=== PATIENT | female | born 1965 | race Caucasian/White ===

== ENCOUNTER → 2019-07-22 09:03 | Outpatient (CLI) | payer BC, SELFPAY ==
--- NOTE | ~2019-07-22 | DEXA_ITS ---
Bone Density Report Name: Jenny Colmenares Age: 54 Sex: Female Ethnicity: White Date of : 1965 Indication: postmenopausal; screening for osteoporosis; height loss; Referring Provider: Viktor Higuera Study: Bone densitometry was performed. Exam Date: July 22, 2019 Accession number: [id number] Bone Density: Region BMD T-score Z-score Classification AP Spine (L1-L4) 0.934 -1.0 0.1 Normal Femoral Neck (Left) 0.619 -2.1 -1.0 Osteopenia Total Hip (Left) 0.747 -1.6 -0.9 Osteopenia Femoral Neck (Right) 0.596 -2.3 -1.2 Osteopenia Total Hip (Right) 0.756 -1.5 -0.8 Osteopenia Total Hip Mean 0.752 -1.6 -0.9 Osteopenia World Health Organization criteria for BMD impression classify patients as: Normal (T-score at or above -1.0), Osteopenia (T-score between -1.0 and -2.5), or Osteoporosis (T-score at or below -2.5). 10-year Fracture Risk(1): Major Osteoporotic Fracture 7.8% Hip Fracture 1.2% Reported Risk Factors: [place] (), Neck BMD=0.596, BMI=20.0 (1) FRAX(R) Version 3.08. Fracture probability calculated for an untreated patient. Fracture probability may be lower if the patient has received treatment. Clinical Information Provided by Patient: Patient maximum height was 66 No regular weight bearing exercise Does not regularly consume dairy products Drinks caffeinated beverages Onset of menses at age 11 Number of children 2 Impression: The patient has low bone mass, based on the Right Femoral Neck T-score. The patient has an estimated ten-year risk of hip fracture of 1.2% and an estimated ten-year risk of major fracture of 7.8%, based on the WHO FRAX algorithm. Discussion: BONE DENSITY IS LOW AT ONE OR MORE SKELETAL SITES. This patient's lowest T-score is low at one or more skeletal sites. It meets the World Health Organization's (WHO) criteria for ?low bone mass? (T-score between -1.0 and -2.5). The patient's 10-year risk of fracture as calculated by FRAX is less than the threshold where pharmacological therapy is recommended by the National Osteoporosis Foundation (NOF). However, all treatment decisions require clinical judgment and consideration of individual patient factors, including patient preferences, comorbidities, previous drug use, risk factors not captured in the FRAX model (e.g., frailty, falls, vitamin D deficiency, increased bone turnover, interval significant decline in bone density) and possible under or overestimation of fracture risk by FRAX. The patient should follow a healthful lifestyle (good nutrition with adequate calcium and vitamin D, and appropriate weight-bearing exercise). Follow-Up: Consider repeating this study in 2 to 3 years to reassess this patient's status, or sooner if there is some new clinical indication. Reported by: REANNA on 07/22/2019 9:21:00 AM
== END ==
PROVIDERS: PCP Registered Nurse; Visit Provider Obstetrics & Gynecology
DX: Z13.820 Encounter for screening for osteoporosis (principal); M85.89 Other specified disorders of bone density and structure, multiple sites
CPT/HCPCS: 77080

== ENCOUNTER → 2022-10-28 11:00 | Outpatient (CLI) | payer BC, SELFPAY ==
--- NOTE | ~2022-10-28 | DEXA_ITS ---
Bone Density Report Name: ISIS MALDONADO Age: 57 Sex: Female Ethnicity: White Date of : 1965 Indication: osteopenia; height loss; postmenopausal Referring Provider: NIKITA VELEZ Study: Bone densitometry was performed. Exam Date: October 28, 2022 Accession number: [id number] Bone Density: Region BMD T-score Z-score Classification AP Spine (L1-L4) 0.909 -1.3 0.1 Osteopenia Femoral Neck (Left) 0.586 -2.4 -1.1 Osteopenia Total Hip (Left) 0.716 -1.9 -0.9 Osteopenia Femoral Neck (Right) 0.579 -2.4 -1.2 Osteopenia Total Hip (Right) 0.739 -1.7 -0.8 Osteopenia Total Hip Mean 0.728 -1.8 -0.9 Osteopenia World Health Organization criteria for BMD impression classify patients as: Normal (T-score at or above -1.0), Osteopenia (T-score between -1.0 and -2.5), or Osteoporosis (T-score at or below -2.5). 10-year Fracture Risk(1): Major Osteoporotic Fracture 9.3% Hip Fracture 1.6% Reported Risk Factors: [place] (), Neck BMD=0.579, BMI=19.9 (1) FRAX(R) Version 3.08. Fracture probability calculated for an untreated patient. Fracture probability may be lower if the patient has received treatment. Previous Exams: Region Exam Age BMD T-score BMD Change BMD Change Date g/cm2 vs Baseline vs Previous AP Spine(L1-L4) 10/28/2022 57 0.909 -1.3 -0.025* -0.025* 07/22/2019 54 0.934 -1.0 Total Hip(Left) 10/28/2022 57 0.716 -1.9 -0.031* -0.031* 07/22/2019 54 0.747 -1.6 Total Hip(Right) 10/28/2022 57 0.739 -1.7 -0.017 -0.017 07/22/2019 54 0.756 -1.5 *Denotes significance at 95% confidence level, LSC for AP Spine = 0.022 g/cm2, LSC for Total Hip = 0.027 g/cm2 Clinical Information Provided by Patient: Has used the following medications: Vitamin D, Calcium Patient maximum height was 65.5 Menopause Age: 46 No regular weight bearing exercise Does not regularly consume dairy products Drinks caffeinated beverages Onset of menses at age 11 Number of children 2 Impression: The patient has low bone mass, based on the Left Femoral Neck T-score. The patient has an estimated ten-year risk of hip fracture of 1.6% and an estimated ten-year risk of major fracture of 9.3%, based on the WHO FRAX algorithm. The BMD for the AP Spine(L1-L4) decreased, changing by -0.025 since the last DXA exam. The BMD for the Total Hip(Left) decreased, changing by -0.031 since the last DXA exam. Discussion: B
== END ==
PROVIDERS: PCP Obstetrics & Gynecology Gynecology; Visit Provider Obstetrics & Gynecology Gynecology
DX: M85.89 Other specified disorders of bone density and structure, multiple sites (principal); Z78.0 Asymptomatic menopausal state
CPT/HCPCS: 77080

== ENCOUNTER 2023-11-21 14:22 | Outpatient (CLI) | payer BC, SELFPAY ==
--- NOTE | ~2023-11-21 | CT_ITS ---
EXAMINATION: CT abdomen pelvis wo con DATE: 11/21/2023 14:42 INDICATION: Gross hematuria. TECHNIQUE: Computed tomography (CT) of the abdomen and pelvis was performed without intravenous contr ast. Automated exposure control and iterative reconstruction technique were employed. The dose-length product was 261.13 mGy-cm. COMPARISON: CT abdomen and pelvis dated 02/19/2019, 01/27/[address] dated 09/25/2015 FINDINGS: Small pneumatocele in the right lower lobe. Mild likely radiation fibrosis along the anterior right m iddle lobe. Heart size is normal. No pericardial or pleural effusion. 3.5 cm and 3.2 cm hypodense hem angiomas in the liver the latter unchanged and the former decreased from 5.8 cm on the prior study. T hese demonstrated characteristic peripheral discontiguous puddling of contrast on a prior contrast-en hanced chest CT dated 09/25/2015. Additional approximately 1 cm ill-defined hypodense lesion in the po sterior right hepatic lobe, likely benign given the lack of interval change since the prior abdomen C T studies but not imaged on the prior chest CT most likely an additional hemangioma. Cholecystectomy clips the gallbladder fossa. Spleen, pancreas, bilateral adrenal glands are normal. Bilateral nephrol ithiasis with 4 mm stone in a few on tape 1 mm stones at the lower pole of the right kidney and a few small stones at the lower pole of the left kidney measuring up to 3 mm. No hydronephrosis. 1.3 cm le ft renal cyst. Several phleboliths in the pelvis predominantly on the left. No evident ureteral stone s. Chronic calcified uterine fibroid. Bladder is normal. No bowel obstruction. No free intraperitonea l gas or fluid. No pathologically enlarged abdominal or pelvic lymphadenopathy. Bones are unremarkabl e. IMPRESSION: 1. Nonobstructing bilateral nephrolithiasis. 2. Calcified uterine fibroids. Reviewed, dictated and finalized at location A.
== END 2023-11-21 14:23 ==
LOC: MICIMG 14:24
PROVIDERS: PCP Registered Nurse; Visit Provider Nurse Practitioner Family
DX: N20.0 Calculus of kidney (principal); D25.9 Leiomyoma of uterus, unspecified; Z87.442 Personal history of urinary calculi; Z85.3 Personal history of malignant neoplasm of breast
CPT/HCPCS: 74176

== ENCOUNTER 2023-12-15 09:24 | Outpatient (CLI) | payer BC, SELFPAY ==
--- NOTE | ~2023-12-15 | XR_ITS ---
XR abdomen/kub 1V Ordering provider: Silvana Rodriguez, SPORTS MEDICINE PHYSICIAN History: . Bilat kidney stones . Comparison: None. FINDINGS: BOWEL: Nonobstructive bowel gas pattern. ORGANOMEGALY: None. SIGNIFICANT PATHOLOGIC CALCIFICATIONS: Bilateral kidney stones. Calcifications in the area of the jonny dder unchanged. OTHER: No free air is seen under the diaphragm. IMPRESSION: NO ACUTE ABDOMINAL FINDINGS. Bilateral kidney stones. Reviewed, dictated and finalized at location A.
== END 2023-12-15 09:25 ==
PROVIDERS: PCP Registered Nurse; Visit Provider Nurse Practitioner Family
DX: N20.0 Calculus of kidney (principal)
CPT/HCPCS: 74018

== ENCOUNTER 2024-09-19 15:37 | Outpatient (CLI) | payer BC, SELFPAY ==
--- NOTE | ~2024-09-19 | US_ITS ---
Pelvic ultrasound. Clinical History: Postmenopausal bleeding Technique: Realtime transvaginal scanning of the pelvis was performed. Color flow Doppler and Doppler spectral analysis were performed. Findings: The uterus is anteverted. The endometrial stripe has a thickness of 4 mm. Possible small f ibroid measuring 7 mm. Additional densely calcified fibroid probably present, measuring 2.5 cm in adeola meter. The right ovary measures 2.6 x 1.5 x 1.8 cm. No significant right ovarian or adnexal mass is seen. The left ovary measures 2.1 x 1.2 x 1.6 cm. No significant left ovarian or adnexal mass is seen. There is no evidence of free fluid in the cul de sac. Impression: Uterine fibroids, as above. No abnormal endometrial thickening. Reviewed, dictated and finalized at [facility]. Impression: Uterine fibroids, as above. No abnormal endometrial thickening.
== END 2024-09-19 15:38 | disposition home or self-care (01) ==
LOC: MICIMG 15:39
PROVIDERS: PCP Registered Nurse; Visit Provider Nurse Practitioner
DX: D25.9 Leiomyoma of uterus, unspecified (principal)
CPT/HCPCS: 76830

== ENCOUNTER 2024-11-18 01:02 | Day surgery (SDC) | payer BC, SELFPAY ==
[2024-10-29 08:32] VITALS: BMI 19.6
--- NOTE | 2024-10-29 08:33 | PC.NURSE ---
Addendum entered by Edmar Garza RN 11/13/24 16:16: Except for surgery cancelled due to covid, no other changes to health history. Informed patient to be here at 0830 on 11-18-2024 for surgery at 1030. Reviewed rest of instructions with patient. Original Note: Report to the Outpatient Waiting Room, entrance under the green pavilion located off [facility], at time _0615_ on date _[id number]_. Planned Procedure Time: _08_.? Time changes happen often and if your time is changed the preop area will call you the afternoon before. - You and your visitor will be asked to self-screen and do not enter if you have any COVID symptoms. Please call surgeon if you need to reschedule. - A mask is optional within the hospital at this time. Patients may have clear liquids (water, carbonated beverages, clear teas, apple juice) until 3 hours prior to surgery with a maximum of 20 ounces. - No food from midnight until time of surgery and no smoking, or chewing tobacco (or any form of nicotine). No chewing gum, candy or mints. Take only the following medications with a SIP of water on the morning of surgery: ___None____ DO NOT STOP ANY OF YOUR OTHER PRESCRIPTION MEDICATIONS PRIOR TO SURGERY EXCEPT THE FOLLOWING Hold all vitamins and supplements for 3 days per anesthesiologist. Medications to discontinue per physician Date to take last dose Please no make-up, nail icelandic, hairspray, perfume, deodorant, or body powder the day of surgery.? No jewelry (including any body piercings) or valuables the day of surgery, leave them at home.? Please take a shower or bath the night before, or the morning of, surgery with an antibacterial soap.? Wear comfortable, loose fitting clothing.? - Jewelry must be removed prior to entering the operating room.? Rings and piercings that are not removed may be cut off. - The hospital will not accept responsibility for valuables.? - Please leave all valuables, including medications, at home the day of surgery. If you are going home after surgery, a licensed crew truck driver must drive you home.? - NO public transportation without another adult if you receive anesthesia. - We recommend that an adult stay with you for 24 hours following discharge. - We also recommend that you do not drive, make important decision, drink alcoholic beverages, or take any drugs that were not prescribed by your health care provider for at least 24 hours after your discharge time. Follow any additional instructions given to you from your surgeon. Telephone instructions given to __Jenny___and asked if any additional questions and then verbalized understanding. Patient advised to call surgeon office or pre surgery nurse liaison [phone] if any additional questions.
--- OUTSIDE RECORDS SUMMARY | 2024-11-18 01:05 | XMS_ITS ---
Author Organization [facility] Address [address] [place] [address] Care Team Providers Care Unit Trust Manager Name Role Phone Cara Suarez Primary Care Provider + Angelo Mulligan MD Unavailable [phone] Active Problems Problem Noted Date Diagnosed Date Carpal tunnel syndrome of left wrist 11/22/2019 Overview (11/22/2019): Added automatically from request for surgery [id number] Median neuropathy, left 11/22/2019 Overview (11/22/2019): Added automatically from request for surgery [id number] Intractable migraine without aura and without status migrainosus 04/30/2019 Vaginal atrophy 05/24/2018 Malignant neoplasm of upper- outer quadrant of right breast in female, estrogen receptor negative 05/23/2018 Cervical disc disorder with radiculopathy of mid-cervical region 10/09/2017 Overview (10/09/2017): Added automatically from request for surgery [id number] Failed cervical fusion 10/09/2017 Overview (10/09/2017): Added automatically from request for surgery [id number] Spondylolysis of cervical region 08/24/2017 Postlaminectomy syndrome of cervical region 03/31 Cervicalgia 04/15/2013 Osteoarthritis of cervical spine without myelopa thy 04/15/2013 Acute postoperative pain Current Treatment and Therapy Plans No current plan information found. Past Treatment and Therapy Plans No past plan information found. Lifetime Dose Tracking * Chemical Lifetime Dose Automatic Entry Manual Entr y Fluoro Time 0.2 minutes 0.2 minutes 0 minutes
--- OUTSIDE RECORDS SUMMARY | 2024-11-18 01:05 | XMS_ITS | Clinical Summary ---
Author Organization [facility] Address [address] [place] [id number] Care Team Providers Care Muffler Hand Name Role Phone Cara Suarez Primary Care Provider + Angelo Mulligan MD Unavailable Allergies Active Allergy Reactions Criticality Noted Date Comments Codeine Nausea only Low 02/19/2013 Erythromycin Nausea & Vomiting Low 03/14/2018 Levofloxacin Other (See comments) Low 02/19/2013 Turns toes black Medications bret/D3/mag11/zi nc/copier technician/chace/bor (CALTRATE 600-D PLUS MINERALS ORAL) Take 1 tablet by mouth every morning Active [id number] -Lmfolate-algal 27 mg iron-1.13 mg-581.92 mg capsule Take by mouth daily Active acetaminophen-a spirin-caffeine (EXCEDRIN MIGRAINE) 250-250-65 mg per tablet Take 1 tablet by mouth every 6 (six) hours as needed for headaches Active biotin 1 mg capsule Take by mouth Active Active Problems Problem Noted Date Diagnosed Date Carpal tunnel syndrome of left wrist 11/22/2019 Overview (11/22/2019): Added automatically from request for surgery [id number] Median neuropathy, left 11/22/2019 Overview (11/22/2019): Added automatically from request for surgery [id number] Intractable migraine without aura and without status migrainosus 04/30/2019 Vaginal atrophy 05/24/2018 Malignant neoplasm of upper- outer quadrant of right breast in female, estrogen receptor negative 05/23/2018 Cervical disc disorder with radiculopathy of mid-cervical region 10/09/2017 Overview (10/09/2017): Added automatically from request for surgery [id number] Failed cervical fusion 10/09/2017 Overview (10/09/2017): Added automatically from request for surgery [id number] Spondylolysis of cervical region 08/24/2017 Postlaminectomy syndrome of cervical region 03/31 Cervicalgia 04/15/2013 Osteoarthritis of cervical spine without myelopa thy 04/15/2013 Acute postoperative pain Immunizations Immunization Administration Dates Next Due Influenza, Quadrivalent, Spl it, Preservative Free, Intramuscular 02/09/2020 Influenza, Unspecified 01/29/2019 Pandoodle SARS-CoV-2 Monovalent Vaccination (12+ Yrs) PURPLE 04/27/2021,08/20/2020,07/27/2020 ZOSTER Recombinant 06/24/2019 Surgical History Surgery Date Site/Laterality Comments MASTECTOMY Breast Surgery Mastectomy - (Added by TW Conv) NE CHOLECYSTECTOMY Cholecystectomy - (Added by TW Conv) SIMPLE MASTECTOMY Simple Mastectomy Bilateral - (Added by TW Conv) NECK SURGERY Neck Surgery - (Added by TW Conv) NE INJ CERV/THORAC,W/WO CNTRST Corticosteroid Injection Interlaminar Approach Cervical - (Added by TW Conv) FOOT SURGERY Foot Surgery - toe surgery (Added by TW Conv) RECONSTRUCTION BREAST IMMEDIATE / DELAYED W/ TISSUE TRANSPORT CONDUCTOR 05/01/2013 - 04/30/2014 NECK SURGERY KIDNEY STONE EVALUATION BREAST IMPLANT REMOVAL BREAST BIOPSY BREAST BIOPSY 05/11/2012 Left CARPAL TUNNEL RELEASE MASS EXCISION left back Medical History Medical History Date Comments Effects of radiation Radiation S ickness - (Added by TW Conv) Encounter for antineoplastic chemotherapy Encounter for antineoplastic chemotherapy - (Added by TW Conv) Calculus of kidney Kidney stones , calcium oxalate - (Added by TW Conv) History of radiation therapy 201 3 History of chemotherapy 2012 ARDS (adult respiratory dist ress syndrome) (HCC) 1994 ARDS (adult respiratory dist ress syndrome) (HCC) Irritable bowel syndrome Cancer (HCC) breast; last joey mo 2012, XRT 2013 Cataract Migraines Delayed emergence from gener al anesthesia has not had to go to the ICU unexpected or reintubation PONV (postoperative nausea and vomiting) SEVERE; ZOFRAN IV Breast cancer (HCC) Motion sickness Family History Medical History Relation Name Comments No Known Problems Father No Known Problems Mother Anesthesia problems Neg Hx Relation Name Status Comments Father Mother Social History Tobacco Use Types Packs/Day Years Used Date Smoking Tobacco: Former Cigarettes 1 11 1 979 - 1989 Smokeless Tobacco: Never Alcohol Use Standard Drinks/Week Comments Yes 0 (1 standard drink = 0.6 oz pur e alcohol) rare AUDIT-C Answer Date Recorded Q1: How often do you have a drink containing alc ohol? Monthly or less 03/31/2023 Q2: How many drinks containi ng alcohol do you have on a typical day when you are drinking? 1 or 2 03/31/2023 Q3: How often do you have si x or more drinks on one occasion? Never 03/31/2023 Personal Safety Answer Date Recorded Have you ever been in or are you currently in a harmful physical or emotional relationship or is someone making you feel afraid or unsafe? Denies 03/31/2023 Comments No Sex and Gender Information Value Date Recorded Sex Assigned at Not on file Legal Sex Female 4:36 AM FLOW MATCH SOFA CUTTER Gender Identity Not on file Sexual Orientation Not on file Obstetrics History Last Filed Vital Signs Vital Sign Reading Time Taken Comments Blood Pressure 130/57 03/31/2023 3:00 PM FLOW MATCH SOFA CUTTER Pulse 75 03/31/2023 3:00 PM FLOW MATCH SOFA CUTTER Temperature 36.8 C (98.2 F) 03/31/2023 12:15 PM FLOW MATCH SOFA CUTTER Respiratory Rate 16 03/31/2023 3:00 PM FLOW MATCH SOFA CUTTER Oxygen Saturation 100% 03/31/2023 3:00 PM FLOW MATCH SOFA CUTTER Inhaled Oxygen Concentration - - Weight 54 kg (119 lb 1.6 oz) 03/31/2023 10:00 AM FLOW MATCH SOFA CUTTER Height 165.1 cm (5' 5) 03/31/2023 10:00 AM FLOW MATCH SOFA CUTTER Body Mass Index 19.82 03/31/2023 10:00 AM FLOW MATCH SOFA CUTTER Plan of Treatment Health Maintenance Due Date Last Done Comments Breast Cancer Screening-Mammogram 1965 Cervical Cancer Screening 1965 Colon Cancer Screening-Colonoscopy 1965 Depression Screening 1965 Hepatitis C Screening 1965 DTaP/Tdap/Td Vaccine (1 - Tdap) 1974 Hepatitis B Screening 1981 Regular Well Visit/Exam 18-64 1981 Zoster Vaccine (2 of 2) 08/19/2019 06/24/2019 Covid-19 Vaccine (4 - 2023-2 5 season) 2023 04/27/2021, 08/20/2020, 07/27/2020 Influenza Vaccine (Season Ended) 2024 02/08/2021, 02/09/2020, 01/29/2019 Pneumococcal vaccine <65 Aged Out No longer eligible based on patient's age to complete this topic Medical Devices Implanted Type Area Water Pipe Installer Device Identifier Shelf Expiration Date Model / Serial / Lot [employer] [id number] Acupac Allograft Frozen Graft 25cc Bone Cancellous - [id number] - [id number] Implanted:Qty: 1 on 11/14/2017 by Hemanth Amezquita MD at [facility] Graft N/A: Spine Cervical [employer] 07/26/2019 [id number] / [id number] / [id number] Depuy Spine [id number] Mountaineer 3.5mm Inner Spine Occipital Screw Bone Nonsterile - S0 - [id number] Implanted:Qty: 4 on 11/14/2017 by Hemanth Amezquita MD at [facility] Other - see comments N/A: Spine Cervical Depuy Spine [id number] / 0 / Description:Set cap Depuy Spine 4.730 Synapse 3.5mm 30mm Occipitocervical Curve Prebent David Spinal - S0 - [id number] Implanted:Qty: 1 on 11/14/2017 by Hemanth Amezquita MD at [facility] Other - see comments N/A: Spine Cervical Depuy Spine 614.730 / 0 / Description:Synapse david Synthes 73 3.5mm 35mm Occipitocervical Curve Prebent David Spinal Titanium - S0 - [id number] Implanted:Qty: 1 on 11/14/2017 by Hemanth Amezquita MD at [facility] Other - see comments N/A: Spine Cervical Synthes I 4.735 / 0 / Description:Synapse david Depuy Spine [id number] Mountaineer 3.5mm 14mm Polyaxial Fix Angle Spine - S0 - [id number] Implanted:Qty: 2 on 11/14/2017 by Hemanth Amezquita MD at [facility] Screw Depuy Spine [id number] / 0 / Depuy Spine [id number] Mountaineer 3.5mm 16mm Polyaxial Fix Angle Spine - S0 - [id number] Implanted:Qty: 2 on 11/14/2017 by Hemanth Amezquita MD at [facility] Screw N/A: Spine Cervical Depuy Spine [id number] / 0 / Disc N/A: Neck [facility] CHOICE PLUS BLUE ACCESS [place] ANTHEM ACCESS BLUE ACCESS [place] ANTHEM ACCESS Advance Directives For more information, please contact: [phone] Documents on File Type Date Recorded Patient Flat Optical Element Maker Expl anation ADVANCE DIRECTIVE 05/28/2013 12:00 AM JOSE R OF [employer] SYSTEM ADMIN FINANCIAL/MEDICAL * Full Code (Latest Code Status on File) Date Activated Date Inactivated Comments 11/14/2017 7:16 PM 11/21/2017 4:59 PM Care Teams Muffler Hand Relationship Specialty Start Date End Date Cara Suarez PA PCP - General Nurse Practitioner 05/24/18 Angelo Mulligan MD Medical Oncologist/Computer Security Coordinator Hematology and Oncology 05/25/18
--- OUTSIDE RECORDS SUMMARY | 2024-11-18 01:05 | XMS_ITS | Encounter Summary ---
Author Organization [facility] Health Address [address] [facility] [address] Care Team Providers Care Reel Operator Name Role Phone Pravin Barney MD Primary Care Provider Encounter Details Date Type Department Care Team (Late st Contact Info) Description 09/11/2024 Lab Requisition [facility] - DermPath Lab [address] [facility] [place] [address] Noreen Alvarez MD [address] [place] [address] Social History Tobacco Use Types Packs/Day Years Used Date Smoking Tobacco: Former Smokeless Tobacco: Never Comments No Sex and Gender Information Value Date Recorded Sex Assigned at Not on file Legal Sex Female 9:03 AM MEDICAL SERVICES MANAGER Gender Identity Not on file Sexual Orientation Not on file documented as of this encounter Plan of Treatment Not on file documented as of this encounter Procedures Procedure Name Priority Date/Time Associated Diagnosis Comments DERMATOPATHOLOGY Routine 09/11/2024 11:3 1 AM CDT documented in this encounter Results * DERMATOPATHOLOGY (09/11/2024 11:31 AM CDT) Case Report Dermatopathology Report Case: [id number] Authorizing Provider: Noreen Alvarez MD Collected: 09/11/2024 11:31 AM Ordering Location: [facility] - Received: 09/12/2024 09:17 AM DermPath Lab Pathologist: Genie Duong MD Specimen: Skin, right cheek 12:49 PM CDT DERMATOPATHOLOGY LABORATORY Final Diagnosis Specimen A. SKIN, right cheek: HEALING SKIN CHANGES (L90.5) SUPPURATIVE AND GRANULOMATOUS DERMATITIS CONSISTENT WITH A RUPTURED CYST OR HAIR FOLLICLE (L72.0) (see microscopic description) 12:49 PM CDT DERMATOPATHOLOGY LABORATORY at 1249 CDT Clinical History Non-healing [place] Papule R/O BCC 12:49 PM CDT DERMATOPATHOLOGY LABORATORY Gross Description Specimen A: Received is one formalin filled container labeled with the patient's name and designated right cheek. The specimen consists of a shave biopsy measuring 6x2x1 mm. Jar 0. 12:49 PM CDT DERMATOPATHOLOGY LABORATORY Microscopic Description Specimen A. SKIN, right cheek: There is epidermal hyperplasia and focal erosion beneath which there are vascular proliferation, fibroblasts, and an edematous stroma. Neutrophils, histiocytes, and multinucleated giant cells are present within the superficially sampled dermis. Additional deeper sections were obtained and reviewed. 12:49 PM CDT DERMATOPATHOLOGY LABORATORY Disclaimer An external and internal positive and negative controls are appropriate for the histochemical, immunohistochemical and immunofluorescence stain(s) in this case (if any), except where stated explicitly. The performance characteristics of the stain(s) cited in this report were developed and its performance characteristic determined by the Dermatopathology Laboratory at [facility], directed by Dr. Jeanne Nagy. These tests need not be, and therefore are not, approved by the [place] Food and Drug Administration. The tests are used for clinical purposes. Billing Codes Specimen Charges Stain Charges 30422 1 12:49 PM CDT DERMATOPATHOLOGY LABORATORY Embedded Images 12:49 PM CDT DERMATOPATHOLOGY LABORATORY Pathology/Cytolo gy TISSUE SPECIMEN FROM SKIN / Unknown 09/11/2024 11:31 AM CDT 09/12/2024 9:17 AM CDT Noreen Alvarez MD LAB - PATHOLOGY/CYTOLOGY OR DERABLES Final Result DERMATOPATHOLOGY LABORATORY [facility] - Department of Dermatology [facility] [address] [place] [address], [address] [phone] documented in this encounter Visit Diagnoses Not on filedocumented in this encounter Care Teams Reel Operator Relationship Specialty Start Date End Date Pravin Barney MD [address] [place] [address] PCP - General Family Medicine 06/20/16 documented as of this encounter
--- OUTSIDE RECORDS SUMMARY | 2024-11-18 01:05 | XMS_ITS | Referral Summary ---
Author Organization [facility] Address [address] [place] [address] Care Team Providers Care Deputy Clerk Of Court Name Role Phone Cara Suarez Primary Care Provider + Angelo Mulligan MD Unavailable [phone] Allergies Active Allergy Reactions Criticality Noted Date Comments Codeine Nausea only Low 02/19/2013 Erythromycin Nausea & Vomiting Low 03/14/2018 Levofloxacin Other (See comments) Low 02/19/2013 Turns toes black Medications bret/D3/mag11/zi nc/coping machine assembler/chace/bor (CALTRATE 600-D PLUS MINERALS ORAL) Take 1 tablet by mouth every morning Active [id number] -Lmfolate-algal 27 mg iron-1.13 mg-581.92 mg capsule [...] (11/22/2019): Added automatically from request for surgery [id number] Median neuropathy, left 11/22/2019 Overview (11/22/2019): Added automatically from request for surgery [id number] Intractable migraine without aura and without status migrainosus 04/30/2019 Vaginal atrophy 05/24/2018 Malignant neoplasm of upper- outer quadrant of right breast in female, estrogen receptor negative 05/23/2018 Cervical disc disorder with radiculopathy of mid-cervical region 10/09/2017 Overview (10/09/2017): Added automatically from request for surgery [id number] Failed cervical fusion 10/09/2017 Overview (10/09/2017): Added automatically from request for surgery [id number] Spondylolysis of cervical region 08/24/2017 Postlaminectomy syndrome of cervical region 03/31 Cervicalgia 04/15/2013 Osteoarthritis of cervical spine without myelopa thy 04/15/2013 Acute postoperative pain Immunizations Immunization Administration Dates Next Due Influenza, Quadrivalent, Spl it, Preservative Free, Intramuscular 02/09/2020 Influenza, Unspecified 01/29/2019 Pfizer SARS-CoV-2 Monovalent Vaccination (12+ Yrs) PURPLE 04/27/2021,08/20/2020,07/27/2020 ZOSTER Recombinant 06/24/2019 Social History Tobacco Use Types Packs/Day Years Used Date Smoking Tobacco: Former Cigarettes 1 11 1989 Smokeless Tobacco: Never Alcohol Use Standard [...] on file Legal Sex Female 4:36 AM HUMAN INTELLIGENCE Gender Identity Not on file Sexual Orientation Not on file Last Filed Vital Signs Vital Sign Reading Time Taken Comments Blood Pressure 130/57 03/31/2023 3:00 PM HUMAN INTELLIGENCE Pulse 75 03/31/2023 3:00 PM HUMAN INTELLIGENCE Temperature 36.8 C (98.2 F) 03/31/2023 12:15 PM HUMAN INTELLIGENCE Respiratory Rate 16 03/31/2023 3:00 PM HUMAN INTELLIGENCE Oxygen Saturation 100% 03/31/2023 3:00 PM HUMAN INTELLIGENCE Inhaled Oxygen Concentration - - Weight 54 kg (119 lb 1.6 oz) 03/31/2023 10:00 AM HUMAN INTELLIGENCE Height 165.1 cm (5' 5) 03/31/2023 10:00 AM HUMAN INTELLIGENCE Body Mass Index 19.82 03/31/2023 10:00 AM HUMAN INTELLIGENCE Plan of Treatment Not on file Medical Devices Implanted Type Area Extension Service Supervisor Device Identifier Shelf Expiration Date Model / Serial / Lot [employer] [id number] Acupac Allograft Frozen Graft 25cc Bone Cancellous - [id number] - [id number] Implanted:Qty: 1 on 11/14/2017 by Hemanth Amezquita MD at [facility] Graft N/A: Spine Cervical [employer] 07/26/2019 [id number] / [id number] / [id number] Depuy Spine [id number] Mountaineer 3.5mm Inner Spine Occipital Screw Bone Nonsterile - S0 - [id number] Implanted:Qty: 4 on 11/14/2017 by Hemanth Amezquita MD at [facility] Other - see comments N/A: Spine Cervical Depuy Spine [id number] / 0 / Description:Set cap Depuy Spine 73 Synapse 3.5mm 30mm Occipitocervical Curve Prebent David Spinal - S0 - [id number] Implanted:Qty: 1 on 11/14/2017 by Hemanth Amezquita MD at [facility] Other - see comments N/A: Spine Cervical Depuy Spine 4.730 / 0 / Description:Synapse david Synthes 3.5mm 35mm Occipitocervical Curve Prebent David Spinal Titanium - S0 - [id number] Implanted:Qty: 1 on 11/14/2017 by Hemanth Amezquita MD at [facility] Other - see comments N/A: Spine Cervical Synthes I 4.735 / 0 / Description:Synapse david Depuy Spine [id number] Mountaineer 3.5mm 14mm Polyaxial Fix Angle Spine - S0 - [id number] Implanted:Qty: 2 on 11/14/2017 by Hemanth Amezquita MD at [facility] Screw Depuy Spine [id number] / 0 / Depuy Spine [id number] Mountaineer 3.5mm 16mm Polyaxial Fix Angle Spine - S0 - [id number] Implanted:Qty: 2 on 11/14/2017 by Hemanth Amezquita MD at [facility] Screw N/A: Spine Cervical Depuy Spine [id number] / 0 / Disc N/A: Neck Insurance [facility] Address: [facility] [id number] [place] [address] [facility] CHOICE PLUS BLUE ACCESS CO ANTHEM ACCESS BLUE ACCESS OOS ANTHEM ACCESS Advance Directives For more information, please contact: [phone] Documents on File Type Date Recorded Patient Service Writer Expl anation ADVANCE DIRECTIVE 05/28/2013 12:00 AM JOSE R OF DATA MANAGEMENT SPECIALIST FINANCIAL/MEDICAL * Full Code (Latest Code Status on File) Date Activated Date Inactivated Comments 11/14/2017 7:16 PM 11/21/2017 4:59 PM Care Teams Deputy Clerk Of Court Relationship Specialty Start Date End Date Cara Suarez PA PCP - General Nurse Practitioner 05/24/18 Angelo Mulligan MD Medical Oncologist/Quality Control Head Hematology and Oncology 05/25/18
--- OUTSIDE RECORDS SUMMARY | 2024-11-18 01:05 | XMS_ITS | Encounter Summary ---
Author Organization [facility] Address [address] [place] [address] Phone Care Team Providers Care Director Of Institutional Giving Name Role Phone Cara Suarez Primary Care Provider + Angelo Mulligan MD Unavailable [phone] Encounter Details Date Type Department Care Team (Late st Contact Info) Description 12/16/2019 Orders Only [facility] Orthopaedic Surgery [address] [place] [address] Jamir Abbasi MD [address] [address] [place] [address] Social History Tobacco Use Types Packs/Day Years Used Date Smoking Tobacco: Former Cigarettes 1 11 1 979 - 1989 Smokeless Tobacco: Never Alcohol Use Standard Drinks/Week Comments Yes 0 (1 standard drink = 0.6 oz pur e alcohol) rare Comments No Sex and Gender Information Value Date Recorded Sex Assigned at Not on file Legal Sex Female 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 Gender Identity Not on file Sexual Orientation Not on file documented as of this encounter Ordered Prescriptions Prescription Sig Dispense Quantity Refills Last Filled Start Date End Date meloxicam (MOBIC) 7.5 mg tablet Take 1 tablet (7.5 mg total) by mouth 2 (two) times a day 60 tablet 2 12/16/2019 12/30/2019 documented in this encounter Plan of Treatment Not on file documented as of this encounter Visit Diagnoses Not on filedocumented in this encounter Care Teams Director Of Institutional Giving Relationship Specialty Start Date End Date Cara Suarez PA PCP - General Nurse Practitioner 05/24/18 Angelo Mulligan MD Medical Oncologist/Retail Store Assistant Hematology and Oncology 05/25/18 documented as of this encounter
--- OUTSIDE RECORDS SUMMARY | 2024-11-18 01:05 | XMS_ITS | Encounter Summary ---
Author Organization [facility] Health Address [address] [facility] [place] [address] Care Team Providers Care Heel Compressor Name Role Phone Pravin Barney MD Primary Care Provider [phone] Encounter Details Date Type Department Care Team (Late st Contact Info) Description 02/16/2023 Lab Requisition [facility] - DermPath Lab [address] [facility] [place] [address] Melissa Schuster DO [address] [place] [address] Social History Tobacco Use Types Packs/Day Years Used Date Smoking Tobacco: Former Smokeless Tobacco: Never Comments No Sex and Gender Information Value Date Recorded Sex Assigned at Not on file Legal Sex Female 9:03 AM EVS TECH Gender Identity Not on file Sexual Orientation Not on file documented as of this encounter Plan of Treatment Not on file documented as of this encounter Procedures Procedure Name Priority Date/Time Associated Diagnosis Comments DERMATOPATHOLOGY Routine 02/16/2023 8:43 AM CDT documented in this encounter Results * DERMATOPATHOLOGY (02/16/2023 8:43 AM CDT) Case Report Dermatopathology Report Case: [id number] Authorizing Provider: Melissa Schuster DO Collected: 02/16/2023 08:43 AM Ordering Location: [facility] DermPath Lab Received: 02/16/2023 11:24 AM Pathologist: Seamus Nagy MD Specimen: Skin, left cheek 1:44 PM CDT DERMATOPATHOLOGY LABORATORY Final Diagnosis Specimen A. SKIN, left cheek: PRURIGO NODULARIS, ERODED (L28.1) 1:44 PM CDT DERMATOPATHOLOGY LABORATORY at 1344 CDT Clinical History PN R/O NMSC 1:44 PM CDT DERMATOPATHOLOGY LABORATORY Gross Description Specimen A: Received is one formalin filled container labeled with the patient's name and designated left cheek. The specimen consists of a shave biopsy measuring 5x5x1 mm. Jar 0. 1:44 PM CDT DERMATOPATHOLOGY LABORATORY Microscopic Description Specimen A. SKIN, left cheek: There is a dome-shaped portion of skin with psoriasiform epidermal hyperplasia, compact hyperkeratosis, and fibrosis of the papillary dermis associated with a superficial perivascular lymphohistiocytic infiltrate. A focal erosion is present. 1:44 PM CDT DERMATOPATHOLOGY LABORATORY Disclaimer An external and internal positive and negative controls are appropriate for the histochemical, immunohistochemical and immunofluorescence stain(s) in this case (if any), except where stated explicitly. The performance characteristics of the stain(s) cited in this report were developed and its performance characteristic determined by the Dermatopathology Laboratory at [facility], directed by Dr. Jeanne Nagy. These tests need not be, and therefore are not, approved by the [place] Food and Drug Administration. The tests are used for clinical purposes. Billing Codes Specimen Charges Stain Charges 30411 1 1:44 PM CDT DERMATOPATHOLOGY LABORATORY Embedded Images 1:44 PM CDT DERMATOPATHOLOGY LABORATORY Pathology/Cytolo gy TISSUE SPECIMEN FROM SKIN / Unknown 02/16/2023 8:43 AM CDT 02/16/2023 11:24 AM CDT us Melissa Schuster DO LAB - PATHOLOGY/CYTOLOGY ORDERABLES Final Result DERMATOPATHOLOGY LABORATORY [facility] - Department of Dermatology [facility] [facility], 3rd Floor [address] [phone] documented in this encounter Visit Diagnoses Not on filedocumented in this encounter Care Teams Heel Compressor Relationship Specialty Start Date End Date Pravin Barney MD [address] [place] [address] PCP - General Family Medicine 06/20/16 documented as of this encounter
--- OUTSIDE RECORDS SUMMARY | 2024-11-18 01:05 | XMS_ITS | Clinical Summary ---
Author Organization [facility] Address [address] [place] [address] Care Team Providers Care Assembly Operator Name Role Phone Pravin Barney MD Primary Care Provider [phone] Source Comments [facility],non-owned Affiliates and Associated Physician Practices is amultiple site organization consisting of ambulatory clinics and hospital sitesin [place], [place], [place] and [place]. This disclosure is being madepursuant to the Care Everywhere program and may not contain all information available regarding this patient. Last updated 18.[facility] [employer] Allergies No known active allergies Medications * Be aware that medications may not be up to date on this document. Alwaysverify current medications with the patient. CLONIDINE HCL PO Act laurence albuterol HFA (PROVENTIL;SUE MICHI;PROAIR) 108 (90 BASE) MCG/ACT inhalerIndicatio ns:Acute bronchitis, unspecified organism Inhale 2 Puffs by mouth every 4 hours 1 Inhaler 06/20/2016 Active Encounters Date Type Department Care Team Description 09/11/2024 Lab Requisition [facility] - DermPath Lab [address] [facility] [place] [address] Noreen Alvarez MD from Last 3 Months Social History Tobacco Use Types Packs/Day Years Used Date Smoking Tobacco: Former Smokeless Tobacco: Never Comments No Sex and Gender Information Value Date Recorded Sex Assigned at Not on file Legal Sex Female 9:03 AM EXECUTIVE TEAM LEADER Gender Identity Not on file Sexual Orientation Not on file Last Filed Vital Signs Vital Sign Reading Time Taken Comments Blood Pressure 122/78 06/20/2016 2:09 PM EXECUTIVE TEAM LEADER Pulse 92 06/20/2016 2:09 PM EXECUTIVE TEAM LEADER Temperature 36.7 C (98.1 F) 06/20/2016 2:09 PM EXECUTIVE TEAM LEADER tylenol at 11:30 am Respiratory Rate 16 06/20/2016 2:09 PM EXECUTIVE TEAM LEADER Oxygen Saturation 98% 06/20/2016 2:0 9 PM EXECUTIVE TEAM LEADER Inhaled Oxygen Concentration - - Weight 49.9 kg (110 lb) 06/20/2016 2:09 PM EXECUTIVE TEAM LEADER Height 165.1 cm (5' 5) 06/20/2016 2:09 PM EXECUTIVE TEAM LEADER Body Mass Index 18.3 06/20/2016 2:09 PM EXECUTIVE TEAM LEADER Plan of Treatment Health Maintenance Due Date Last Done Comments COLOGUARD (AGES 45-75) - COL ON CA SCREENING 1963 COLON MONITORING 1963 COLONOSCOPY - COLON CA SCREENING 1963 CT COLONOGRAPHY - COLON CA SCREENING 1963 Colorectal Cancer Screening 1963 FIT - COLON CA SCREENING 1963 FLEX SIG - COLON CA SCREENING 1963 LIPID TESTING 1963 MAMMOGRAM 1963 HIV SCREENING 1978 HEPATITIS C SCREENING 06/10/1981 DTAP/TDAP/TD VACCINES (1 - Tdap) 1982 PAP SMEAR 1984 PNEUMOCOCCAL VACCINE 50+ (1 of 1 - PCV) 2013 ZOSTER VACCINE (1 of 2) 2013 COVID-19 VACCINE ( - 2023-2 5 season) 2023 DEPRESSION SCREENING 05/01/2024 INFLUENZA VACCINE (#1) 2024 Respiratory Syncytial Virus (RSV) Vaccine Pt: or over 60 yrs (1 - 1-dose 75+ series) 2038 HEPATITIS B VACCINE Aged Out No longe r eligible based on patient's age to complete this topic HIB VACCINE Aged Out No longer eligi ble based on patient's age to complete this topic HPV VACCINE Aged Out No longer eligi ble based on patient's age to complete this topic MENINGOCOCCAL (Group B) VACC INE SHARED DECISION-MAKING Aged Out No longer eligibl e based on patient's age to complete this topic MENINGOCOCCAL GROUPS A/C/Y/W VACCINE Aged Out No longer eligible b ased on patient's age to complete this topic Procedures Procedure Name Priority Date/Time Associated Diagnosis Comments DERMATOPATHOLOGY Routine 09/11/2024 11:3 1 AM CDT from Last 3 Months Results * DERMATOPATHOLOGY (09/11/2024 11:31 AM CDT) Case Report Dermatopathology Report Case: [id number] Authorizing Provider: Noreen Alvarez MD Collected: 09/11/2024 11:31 AM Ordering Location: [facility] - Received: 09/12/2024 09:17 AM DermPath Lab Pathologist: Genie Duong MD Specimen: Skin, right cheek 12:49 PM CDT DERMATOPATHOLOGY LABORATORY Final Diagnosis Specimen A. SKIN, right cheek: HEALING SKIN CHANGES (L90.5) SUPPURATIVE AND GRANULOMATOUS DERMATITIS CONSISTENT WITH A RUPTURED CYST OR HAIR FOLLICLE (L72.0) (see microscopic description) 12:49 PM CDT DERMATOPATHOLOGY LABORATORY at 1249 CDT Clinical History Non-healing [place] Papule R/O BCC 12:49 PM CDT DERMATOPATHOLOGY [...] characteristic determined by the Dermatopathology Laboratory at [facility], directed by Dr. Jeanne Nagy. These tests need not be, and therefore are not, approved by the [place] Food and Drug Administration. The tests are used for clinical purposes. Billing Codes Specimen Charges Stain Charges 37886 1 5 12:49 PM CDT DERMATOPATHOLOGY LABORATORY Embedded Images 12:49 PM CDT DERMATOPATHOLOGY LABORATORY Pathology/Cytolo gy TISSUE SPECIMEN FROM SKIN / Unknown 09/11/2024 11:31 AM CDT 09/12/2024 9:17 AM CDT Noreen Alvarez MD LAB - PATHOLOGY/CYTOLOGY OR DERABLES Final Result DERMATOPATHOLOGY LABORATORY [facility] - Department of Dermatology [address], [address] [phone] from Last 3 Months Insurance [employer] Care Teams Assembly Operator Relationship Specialty Start Date End Date Pravin Barney MD [address] [place] [address] PCP - General Family Medicine 06/20/16
--- OUTSIDE RECORDS SUMMARY | 2024-11-18 01:05 | XMS_ITS | Patient Health Record ---
Author Organization [facility] Address [address] [place], [place] [address] Care Team Providers Care Second Butler Name Role Phone Answer, Declined Unavailable Unavailable Allergies Allergen (clinical drug ingredient) Drug/Non Drug Allergy documented on EMR Reaction Allergy Type Onset Date Status erythromycin Erythromycin Unknown Drug Allergy A ctive Levaquin Unknown Drug Allergy Active Reason For Referral No Information Plan Of Treatment No Information Insurance Providers Payer Name Payer Address Payer Phone Subscriber Number Group Number Insured Name Patient Relationship to Insured Coverage Start Date Coverage End Date [facility] ([facility]) ATTN CLAIMS [address] [place] [address] [id number] [employer] MALDONADO Self - patient is the insured Medical (General) History Surgical History Surgery Date(Month/Year) Gall Bladder cancer kidney Neck surgery
--- OUTSIDE RECORDS SUMMARY | 2024-11-18 01:05 | XMS_ITS | Encounter Summary ---
Author Organization [facility] Address [address] [place] [address] Phone Care Team Providers Care International Travel Consultant Name Role Phone Cara Suarez Primary Care Provider + Angelo Mulligan MD Unavailable [phone] Encounter Details Date Type Department Care Team (Late st Contact Info) Description 12/17/2019 Orders Only [facility] Orthopaedic Surgery [address] [place] [address] Jamir Abbasi MD [address] [facility] [address] [address] [address] [place] [address] Social History Tobacco Use Types Packs/Day Years Used Date Smoking Tobacco: Former Cigarettes 1 11 1 979 - 1989 Smokeless Tobacco: Never Alcohol Use Standard Drinks/Week Comments Yes 0 (1 standard drink = 0.6 oz pur e alcohol) rare Comments No Sex and Gender Information Value Date Recorded Sex Assigned at Not on file Legal Sex Female 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
--- NOTE | 2024-11-18 07:26 | WPDHPUPDATE1 ---
History and Physical Update Update Date/Time: 11/18/24 07:26 History and Physical has been reviewed, including an updated exam of the patient. There are NO changes in the patient's condition. Risks, benefits, and alternatives have been discussed and questions answered. Patient agrees to proceed with procedure.
--- NOTE | 2024-11-18 07:26 | PM.HPGS ---
History of Present Illness History of Present Illness Consent: Risks, benefits, and alternatives have been discussed and questions answered. Patient agrees to proceed with procedure. Chief complaint: Post Menopausal Bleeding Narrative: Jenny Colmenares is a 59 year old female with 3 episodes of postmenopausal bleeding. Pelvic ultrasound showed thickened endometrium. It was recommended to undergo further workup with D&C hysteroscopy. Risks of infection, bleeding, perforation, and possible pathology are reviewed with the patient. Patient voices understanding and agrees to proceed. Review of Systems Review of Systems: not repeated day of surgery; patient states no changes in status REPLACED BY [facility] Past Medical History Medical History (Updated 11/18/24 @ 07:30 by Ibis Hurst MD) (normal spontaneous vaginal delivery) X2 History of kidney stones Migraines History of breast cancer 2011 Surgical History Surgical History (Updated 11/18/24 @ 07:29 by Ibis Hurst MD) Status post bilateral breast reconstruction x5 procedures [id number] Status post bilateral mastectomy Status post laparoscopic cholecystectomy Social History Social History Smoking packs per day: 1 Smoking cigarettes per day: 20.0 Years smoked: 10 Smoking pack-years: 10.00 Smoking status: Never smoker Tobacco type: cigarettes Smoking end date: 10/29/88 Alcohol intake: current Living arrangements: with family Spiritual care concerns: No Meds Home Medications and Allergies Home Medications ?Medication ?Instructions ?Recorded ?Confirmed ?Type No Home Medications 10/29/24 11/13/24 History Allergies Allergy/AdvReac Type Severity Reaction Status Date / Time levofloxacin Allergy Unknown Other Verified 11/13/24 16:17 erythromycin base AdvReac Mild NAUSEA Verified 11/18/24 07:08 codeine AdvReac Unknown NASUEA/HEAD Verified 11/18/24 07:08 ACHES Exam Const: General: healthy appearing and alert Orientation/consciousness: patient oriented x3 Resp: Effort & Inspection: normal respiratory effort : External Female Exam: normal external appearance Speculum Exam - Vagina: normal appearance of the vagina and normal vaginal discharge Speculum Exam - Cervix: normal appearance of the cervix Bimanual exam- vagina & uterus: uterine size normal and consistency normal Bimanual Exam- Adnexa, other: normal adnexae and No adnexal tenderness Neuro: General: patient oriented x3 Assessment and Plan Assessment and plan (1) Post-menopausal bleeding: Code(s): N95.0 - Postmenopausal bleeding Status: Acute Assessment and Plan: Plan to proceed with D&C hysteroscopy
[2024-11-18 08:03] VITALS: BP 128/50; PULSE 75; RESP 16; TEMP 36.1; O2SAT 100
[2024-11-18] MEDS: ACETAMINOPHEN 500 MG TABLET 1000 MG PO (08:23)
[2024-11-18] MEDS: LACTATED RINGERS 1,000 ML 30 ML IV CONT (09:10)
--- NOTE | 2024-11-18 09:45 | P.PNAN_ITS ---
Anes - Initial Pre Proc Eval Procedure: Operation Date: 11/18/24 09:45 Proposed Procedures p Hysteroscopy Dilation and Curettage - Ibis Hurst MD Date/Time: 11/18/24 09:45 Surgeon: Ibis Hurst MD Pre Op Diagnosis: Post Menopausal Bleeding Patient Data Age: 59 Gender: F Height: 1.65 m Weight: 52.4 kg Last Vital Signs Temp 36.1 C L 11/18/24 08:03 Pulse 75 11/18/24 08:03 Resp 16 11/18/24 08:03 BP 128/50 L 11/18/24 08:03 Pulse Ox 100 11/18/24 08:03 O2 Del Method Room Air 11/18/24 08:03 Allergies Allergy/AdvReac Type Severity Reaction Status Date / Time levofloxacin Allergy Unknown Other Verified 11/18/24 08:16 erythromycin base AdvReac Mild NAUSEA Verified 11/18/24 08:16 codeine AdvReac Unknown NASUEA/HEAD Verified 11/18/24 08:16 ACHES Home Medications ?Medication ?Instructions ?Recorded ?Confirmed ?Type No Home Medications 10/29/24 11/13/24 History Patient hx anesthesia problems: none Family hx anesthesia problems: none Results Review: All pre-operative results and documents have been reviewed as part of the pre- operative evaluation. [facility] Past Medical History Medical History (normal spontaneous vaginal delivery) X2 History of kidney stones Migraines History of breast cancer 2011 Surgical History Surgical History Status post bilateral breast reconstruction x5 procedures [id number] Status post bilateral mastectomy Status post laparoscopic cholecystectomy Social History Social History Smoking packs per day: 1 Smoking cigarettes per day: 20.0 Years smoked: 10 Smoking pack-years: 10.00 Smoking status: Never smoker Tobacco type: cigarettes Smoking end date: 10/29/88 Alcohol intake: current Living arrangements: with family Spiritual care concerns: No Anes - Eval Final PreProcedure Day of Procedure 11/18/24 09:45 Patient weight: normal Heart: regular rate and rhythm Lungs: clear to auscultation Airway: Mallampati scale class II Neurological: alert and oriented Last oral intake: >/= 8 hours ASA classification: III Emergent: no Anesthetic plan: proceed Anesthesia type and monitoring: general GIVS and standard monitoring Results Review: All pre-operative results and documents have been reviewed as part of the pre- operative evaluation. Informed Consent: The patient's anesthetic plan and its attendant risks and benefits were discussed with the patient/family/POA. Questions were solicited and answers provided to the satisfaction of the patient/family/POA.
[2024-11-18] MEDS: SCOPOLAMINE 1 MG PATCH 1 PATCH TRANSDERM (09:46)
[2024-11-18] MEDS: KETOROLAC 30 MG/ML VIAL (*BKC) IV PUSH (09:59)
--- NOTE | 2024-11-18 10:09 | SUR.OPER ---
fluid deficit 60
[2024-11-18 10:10] VITALS: BP 84/31; PULSE 57; RESP 16; O2SAT 100
--- NOTE | 2024-11-18 10:11 | P.OP_ITS ---
Procedure Note - Detailed Date of Procedure 11/18/24 Pre-op Diagnosis Post Menopausal Bleeding Post-op Diagnosis Same (Severe cervical stenosis) Procedure Performed Failed D&C hysteroscopy Surgeon Ibis Hurst MD Anesthesia MAC Findings The cervix is severely stenotic. Description of Procedure The patient was taken to the operating room and placed under anesthesia in the dorsal lithotomy position. She was prepped and draped in the usual sterile fash ion. [place] speculum was placed in the vagina and the cervix grasped on the anterior lip with a tenaculum. The sound was placed and only when approximately0.5cm into the cervix. The [place] dilators were used and again only when approximately cm and cervix. The os finders were used and again would not enter the cervix. The 11 blade scalpel was used to chon cross the external os. The os Finders were again used and went approximately 3cm. After using all 3 os finders, the hysteroscope was used to attempt to hydro dissection. During this process the cavity was perforated. The procedure was immediately stopped and hysteroscope was drawn. Instruments are removed. The patient was awakened from anesthesia and taken to recovery in stable condition. Sponge, needle, and instrument counts are correct per the OR staff. Estimated Blood Loss 5 Drains No Packing No Pathology None sent Complications Other complications (Uterine perforation) Condition Stable Disposition PACU
[2024-11-18 10:40] VITALS: BP 102/48; PULSE 66; RESP 16; O2SAT 100
[2024-11-18 11:10] VITALS: BP 124/51; PULSE 60; RESP 16
--- NOTE | 2024-11-18 11:37 | SUR.PHASEII ---
1100 DR. VELEZ CALLED TO SPEAK TO PATIENT PER PATIENT REQUEST. DR. VELEZ SPOKE TO PATIENT AND SPOUSE.
== END 2024-11-18 11:35 | disposition home or self-care (01) ==
PROVIDERS: Visit Provider Obstetrics & Gynecology Gynecology
PROC: 0U5B8ZZ Destruction of Endometrium, Via Natural or Artificial Opening Endoscopic (ICD-10-PCS; CPT 58563; principal; 2024-11-18 09:45)
DX: N95.0 Postmenopausal bleeding (principal); N88.2 Stricture and stenosis of cervix uteri; N99.71 Accidental puncture and laceration of a genitourinary system organ or structure during a genitourinary system procedure; Z53.8 Procedure and treatment not carried out for other reasons
CPT/HCPCS: 58558; A9270; J1885; J2003; J2250; J2405; J2704; J3010; J7120